=== PATIENT | male | born 1955 | race Hispanic/Latino ===

== ENCOUNTER 2022-01-26 18:51 | Emergency (ER) | payer BC, MEDICARE ==
[2022-01-26 22:05] LABS: Basophils % (Auto) 0.3 % (0.0-1.8); Eosinophils # (Auto) 0.1 K/mm3 (0.0-0.4); Hematocrit 44.3 % (35.5-45.6); Lymphocytes # (Auto) 1.2 K/mm3 (1.2-5.4); Lymphocytes % (Auto) 10.4 % (13.4-35.0); Mean Corpuscular HGB Conc 34 % (32-34); Mean Corpuscular Volume 90 fl (84-94); Monocytes # (Auto) 1.4 K/mm3 (0.0-0.8); Monocytes % (Auto) 11.6 % (0.0-7.3); Platelet Count 223 K/mm3 (140-440); Red Blood Count 4.95 M/mm3 (3.65-5.03); Red Cell Distribution Width 12.8 % (13.2-15.2)
[2022-01-26 22:24] LABS: Albumin 4.9 g/dL (3.9-5); Calcium 10.1 mg/dL (8.4-10.2)
[2022-01-27 00:08] LABS: Hyaline Casts,Urine 1 /LPF; Mucus,Urine FEW /HPF
[2022-01-27 00:40] LABS: Bilirubin,Urine Negative (Negative); Blood,Urine Trace (Negative); Color,Urine Dark Yellow (Yellow); Urobilinogen,Urine < 2.0 mg/dL (<2.0)
[2022-01-27] MEDS ORDERED: SODIUM CHLORIDE 0.9% 1000 ML 1,000 ML IV ONE (04:02)
[2022-01-27] MEDS ORDERED: ONDANSETRON 4 MG/2 ML INJ IV STA (04:02)
[2022-01-27] MEDS ORDERED: MORPHINE 4 MG/1 ML INJ IV PRN (04:02)
--- NOTE | 2022-01-27 04:20 | Emergency Department Report ---
ED Abdominal Pain HPI - General Chief Complaint: Abdominal Pain Stated Complaint: ABDOMINAL LOWER LT SIDE Time Seen by Provider: 01/27/22 04:01 Source: patient Mode of arrival: Ambulatory Limitations: No Limitations - History of Present Illness Initial Comments: 66-year-old male presents emerge department complaining of pain to the left lower quadrant that started 4 days ago of unknown etiology. States he developed some severe pain to the left lower quadrant the spontaneously resolved before reemerging on yesterday. Pain is dull and cramping worse with palpation and range of motion and deep breaths associated with occasional nausea but no vomiting no diarrhea no hemoptysis no hematemesis no fever, chills, sweats MD Complaint: abdominal pain -: Sudden Location: LLQ Radiation: epigastric Migration to: epigastric Severity: mild Quality: aching, dull Consistency: constant Improves With: nothing Worsens With: eating - Related Data Previous Rx's Medication Instructions Recorded Last Taken Type HYDROcodone/APAP 10-325 [[place] 1 each PO Q8HR PRN #7 tablet 01/27/22 Unknown Rx 10/325] Ketorolac [Toradol] 10 mg PO Q6H PRN #15 tablet 01/27/22 Unknown Rx Nitrofurantoin [place]/M-Cryst 100 mg PO Q12HR #20 capsule 01/27/22 Unknown Rx [Macrobid CAP] Tamsulosin [Flomax] 0.4 mg PO QDAY #10 cap 01/27/22 Unknown Rx Allergies Allergy/AdvReac Type Severity Reaction Status Date / Time No Known Allergies Allergy Unverified 01/26/22 20:32 ED Review of Systems ROS: Stated complaint: ABDOMINAL LOWER LT SIDE Other details as noted in HPI ED Past Medical Hx - Medications Home Medications: Home Medications Medication Instructions Recorded Confirmed Last Taken Type HYDROcodone/APAP 10-325 [[place] 1 each PO Q8HR PRN #7 tablet 01/27/22 Unknown Rx 10/325] Ketorolac [Toradol] 10 mg PO Q6H PRN #15 tablet 01/27/22 Unknown Rx Nitrofurantoin [place]/M-Cryst 100 mg PO Q12HR #20 capsule 01/27/22 Unknown Rx [Macrobid CAP] Tamsulosin [Flomax] 0.4 mg PO QDAY #10 cap 01/27/22 Unknown Rx ED Physical Exam - General Limitations: No Limitations General appearance: alert, in no apparent distress - Head Head exam: Present: atraumatic, normocephalic - Eye Eye exam: Present: normal appearance - ENT ENT exam: Present: mucous membranes moist - Neck Neck exam: Present: normal inspection - Respiratory Respiratory exam: Present: normal lung sounds bilaterally. Absent: respiratory distress - Cardiovascular Cardiovascular Exam: Present: regular rate, normal rhythm. Absent: systolic murmur, diastolic murmur, rubs, gallop - GI/Abdominal GI/Abdominal exam: Present: soft, tenderness (Left side and epigastric region), normal bowel sounds. Absent: hypoactive bowel sounds, organomegaly, mass, pulsatile mass - Rectal Rectal exam: Present: deferred - Extremities Exam Extremities exam: Present: normal inspection - Back Exam Back exam: Present: normal inspection, CVA tenderness (L) - Neurological Exam Neurological exam: Present: alert, oriented X3, CN II-XII intact, normal gait - Psychiatric Psychiatric exam: Present: normal affect, normal mood - Skin Skin exam: Present: warm, dry, intact, normal color. Absent: rash ED Course Vital Signs 01/26/22 01/27/22 01/27/22 20:35 04:36 05:47 Temperature 98.3 F 98.3 F Pulse Rate 85 79 Respiratory 18 16 16 Rate Blood Pressure 182/105 177/95 O2 Sat by Pulse 97 97 Oximetry ED Medical Decision Making - Lab Data Result diagrams: 01/26/22 21:16 01/26/22 21:16 - Radiology Data Radiology results: [place] [address] Cat Scan Report Signed Patient: TOBI JUNIOR MR#: [id number] : 1955 Acct:[id number] Age/Sex: 66 / M ADM Date: 01/26/22 Loc: ED Attending Dr: Ordering Physician: MODESTO MCKNIGHT Date of Service: 01/27/22 Procedure(s): CT abdomen pelvis w con Accession Number(s): [id number] cc: MODESTO MCKNIGHT CT ABDOMEN AND PELVIS WITH INTRAVENOUS CONTRAST INDICATION / CLINICAL INFORMATION: Epigastric abdominal pain and elevated lipase. TECHNIQUE: 100 cc Omnipaque [address] scans at this location are performed using CT dose reduction for ALARA by means of automated exposure control. COMPARISON: None available. FINDINGS: ABDOMEN: There is moderately severe left pelvocaliectasis and proximal ureterectasis. The left nephrogram is significantly delayed. There are 2 or 3 adjacent calculi in the left ureter near the L4/L4-5 level, the largest of which measures approximately 6 mm. There is a 3 mm nonobstructive calculus in the right mid kidney. There is mild diffuse fatty infiltration of the liver without focal lesion. The gallbladder, bile ducts, pancreas, spleen, adrenal glands and bowel demonstrate no significant abnormality. No adenopathy is present. There are minimal atherosclerotic calcifications involving aorta without aneurysm. The lung bases are clear. PELVIS: The distal ureters and urinary bladder are normal. The prostate gland is mildly enlarged. There are multiple left colonic diverticula without acute inflammation. A normal appendix is present. No abnormal mass or fluid collection is seen. There are small bilateral fat-containing inguinal hernias without complication. Mild spondylosis is noted. IMPRESSION: 1. Multiple calculi in the left mid ureter are causing moderately severe hydronephrosis. The largest calculus measures approximately 6 mm. 2. Small nonobstructive right renal calculus. 3. No CT evidence of acute pancreatitis. Signer Name: Tao Hollingsworth MD Signed: 01/27/2022 5:14 AM Workstation Name: [id number] Transcribed By: RT Dictated By: Tao Hollingsworth MD Electronically Authenticated By: Tao Hollingsworth MD Signed Date/Time: 01/27/22513 DD/ 050 TD/TT: - Medical Decision Making Clinically the patient presents with nephrolithasis. IV pain medications, antiemetics, and IV fluids were given. A CT Abdomen/Pelvis was obtained for concern for a possible obstructing kidney stone and to rule out other pathologic conditions. The CT confirmed revealed a stone at left mid ureter. The patient's labs were significant for . With pain medication the patient improved significantly. The patient is referred to the on-call urologist for follow up and is discharged with oral narcotics for pain control, Flomax, antiemetics, and given the following return precautions: Fever > 100.5, pain not controlled with narcotics, vomiting or any other concerns and to strain the urine Critical care attestation.: If time is entered above; I have spent that time in minutes in the direct care o f this critically ill patient, excluding procedure time. ED Disposition Clinical Impression: Kidney stone Disposition: HOME / SELF CARE / HOMELESS Is pt being admited?: No Does the pt Need Aspirin: No Condition: Stable Instructions: Low-Purine Eating Plan, Percutaneous Nephrolithotomy, Care After, Laser Therapy for Kidney Stones, Care After, Kidney Stones, Dietary Guidelines to Help Prevent Kidney Stones Prescriptions: Tamsulosin [Flomax] 0.4 mg PO QDAY #10 cap Nitrofurantoin [place]/M-Cryst [Macrobid CAP] 100 mg PO Q12HR #20 capsule HYDROcodone/APAP 10-325 [[place] 10/325] 1 each PO Q8HR PRN #7 tablet PRN Reason: Pain Ketorolac [Toradol] 10 mg PO Q6H PRN #15 tablet PRN Reason: Pain Referrals: MATT COCHRAN MD [Primary Care Provider] - 3-5 Days [facility] [Provider Group] - 3-5 Days
--- NOTE | 2022-01-27 05:18 | Cat Scan Report ---
CT ABDOMEN AND PELVIS WITH INTRAVENOUS CONTRAST INDICATION / CLINICAL INFORMATION: Epigastric abdominal pain and elevated lipase. TECHNIQUE: 100 cc Omnipaque [address] scans at this location are performed using CT dose reduction for ALARA by means of automated exposure control. COMPARISON: None available. FINDINGS: ABDOMEN: There is moderately severe left pelvocaliectasis and proximal ureterectasis. The left nephro gram is significantly delayed. There are 2 or 3 adjacent calculi in the left ureter near the L4/L4-5 level, the largest of which measures approximately 6 mm. There is a 3 mm nonobstructive calculus in t he right mid kidney. There is mild diffuse fatty infiltration of the liver without focal lesion. The gallbladder, bile kristian ts, pancreas, spleen, adrenal glands and bowel demonstrate no significant abnormality. No adenopathy is present. There are minimal atherosclerotic calcifications involving aorta without aneurysm. The gabe ng bases are clear. PELVIS: The distal ureters and urinary bladder are normal. The prostate gland is mildly enlarged. The re are multiple left colonic diverticula without acute inflammation. A normal appendix is present. No abnormal mass or fluid collection is seen. There are small bilateral fat-containing inguinal hernias without complication. Mild spondylosis is noted. IMPRESSION: 1. Multiple calculi in the left mid ureter are causing moderately severe hydronephrosis. The largest calculus measures approximately 6 mm. 2. Small nonobstructive right renal calculus. 3. No CT evidence of acute pancreatitis. Signer Name: Tao Hollingsworth MD Signed: 01/27/2022 5:14 AM Workstation Name: [id number]
[2022-01-27 06:54] VITALS: BP 174/101
== END 2022-01-27 07:00 | disposition home or self-care (01) ==
LOC: ED 18:51
DX: N20.0 Calculus of kidney (principal); Z79.899 Other long term (current) drug therapy
CPT/HCPCS: 36415; 74177; 80053; 81001; 83690; 85025; 96361; 96374; 96375; 99284; J2270; J2405; J7030; Q9967; Q0162